=== PATIENT | male | born 1995 | race Caucasian/White ===

== ENCOUNTER 2018-02-11 17:30 | Emergency (ER) | payer BC, MEDICAID ==
[~2018-02-11] VITALS: Ht 177.8 cm; Wt 112.0 kg
[2018-02-11] MEDS ORDERED: IPRATROPIUM/ALBUTEROL 0.5-3(2.5)MG/3ML NEB HHN ONE (21:30)
[2018-02-11] MEDS ORDERED: PREDNISONE 20MG TABLET PO ONE (21:30)
[2018-02-11 22:38] VITALS: BP 134/76
== END 2018-02-11 22:39 | disposition home or self-care (01) ==
LOC: ER 19:47
DX: J06.9 Acute upper respiratory infection, unspecified (principal); J45.901 Unspecified asthma with (acute) exacerbation
CPT/HCPCS: 94640; 99283; J7512; J7620